=== PATIENT | female | born 1980 | race Two or more races ===

== ENCOUNTER 2016-04-06 09:23 | Inpatient (IN) | payer SELFPAY ==
[~2016-04-06] VITALS: Ht 154.9 cm; Wt 76.7 kg
[2016-04-06] MEDS ORDERED: IV RINGERS,LACTATED 1000ML 1,000 ML IV SCH (09:58)
[2016-04-06] MEDS ORDERED: 0.9 % SODIUM CHLORIDE 10 ML DISP.SYRIN. IV PRN ×2 (10:00→14:30)
[2016-04-06] MEDS ORDERED: OXYTOCIN 30 UNIT/500 ML PREMIX 500 ML IV PRN ×2 (10:00→14:30)
[2016-04-06] MEDS ORDERED: LIDOCAINE 1% PF 30 ML VIAL. INJ PRN (10:00)
[2016-04-06] MEDS ORDERED: TERBUTALINE 1 MG/ML VIAL. SQ PRN (10:00)
[2016-04-06] MEDS ORDERED: FENTANYL PF 100 MCG/2 ML VIAL. IV PRN (10:00)
[2016-04-06] MEDS ORDERED: BUTORPHANOL 2 MG VIAL. IV PRN ×2 (10:00→14:30)
[2016-04-06 10:24] VITALS: BP 124/67
[2016-04-06 11:24] LABS: HEMATOCRIT 39.4 % (36.0-47.0); HEMOGLOBIN 13.4 g/dL (12.0-15.5); RED BLOOD COUNT 4.51 x10^6/uL (3.50-5.40); RED CELL DISTRIBUTION WIDTH 13.4 % (11.5-14.5); WHITE BLOOD COUNT 10.9 x10^3/uL (4.0-11.0)
--- NOTE | 2016-04-06 13:38 | PDOC1 ---
OB - History Hx of Present Care: Good Care Ultrasounds: Normal mid trimester US Obstetrical Complications: None Medical Complications: None Past Family/Social History * Past Medical, Surgical, Family and Obstetric Histories reviewed from chart. Rubella: Immune RPR/VDRL: Negative GBS Status: Negative HBsAG: Negative OB - Chief Complaint & HPI Date of Admission: Date of Admission: Apr 06, 2016 at 09:23 Chief Complaint/History : 4 Para: 3 EGA: 36 Reason for admission: active labor Admission Nurse Assessment Rev: Yes Problems: OB - Admission Exam Physical Exam Vitals: VS - Last 72 Hours, by Label Date Time Temp Pulse Resp B/P Pulse Ox O2 Delivery O2 Flow Rate FiO2 04/06/16 11:50 22 Room Air 04/06/16 10:24 97.9 98 20 124/67 97.9 HEENT: Normal Heart: Regular Rate Lungs: Clear Abdomen: Gravid, Non tender, Soft Extremities: Edema Reflexes: Normal Cervical Dilatation: 5cm Effacement: 75% Station: -2 Membranes: Intact Heart Rate: Normal Accelerations: Accelerations Present Decelerations: No decelerations Contractions on Admission: < 5 Minutes Apart Intensity: Moderate Text A: 38 wks IUP Active labor P: Admit for labor management. DALJIT SUMMERS Jr, MD Apr 06, 2016 13:38
--- NOTE | 2016-04-06 14:25 | PDOC ---
VAGINAL DELIVERY DATE DATE: 04/06/16 TIME: 14:24 : 4 Para: 4 EGA: 38 VAGINAL DELIVERY: VTX VACCUM ASSISTED: No PLACENTA: Spontaneous 8/9 SEX: Male WEIGHT Weight [3455 gm ] Nuchal Cord: Yes, Times 2 Amniotic Fluid: Clear PAIN: Natural EPISIOTOMY: No EXTENSION: Yes (2nd degree midline laceration) REPAIRED WITH 2-0 vicryl EBL 300 ml COMPLICATIONS none CONDITION pt. stable Signs of Intrauterine Infectio: None Shoulder Dystocia: No Problems: DALJIT SUMMERS Jr, MD Apr 06, 2016 14:25
[2016-04-06] MEDS ORDERED: SIMETHICONE 80 MG TAB.CHEW PO PRN (14:30)
[2016-04-06] MEDS ORDERED: ZOLPIDEM 5 MG TABLET. PO PRN (14:30)
[2016-04-06] MEDS ORDERED: MAGNESIUM HYDROXIDE 2,400 MG/30 ML ORAL.SUSP. PO PRN (14:30)
[2016-04-06] MEDS ORDERED: BENZOCAINE 20% TOPICAL AEROSOL SPRAY 57GM CAN. TP PRN (14:30)
[2016-04-06] MEDS ORDERED: PHENYLEPH/MINERAL OIL/PETROLAT RECTAL OINTMENT 28GM TUBE. RC PRN (14:30)
[2016-04-06] MEDS ORDERED: MMR per PROTOCOL. MC PRN (14:30)
[2016-04-06] MEDS ORDERED: IBUPROFEN 800 MG TABLET. PO PRN (14:30)
[2016-04-06] MEDS ORDERED: HYDROCORTISONE 1% TOPICAL OINTMENT 30GM TUBE. TP PRN (14:30)
[2016-04-06] MEDS ORDERED: ACETAMINOPHEN 325 MG TABLET. PO PRN (14:30)
[2016-04-06] MEDS ORDERED: MAG HYDROX/AL HYDROX/SIMETH 30 ML ORAL.SUSP PO PRN (14:30)
[2016-04-06] MEDS ORDERED: DIPHENHYDRAMINE HCL 25 MG CAPSULE PO PRN (14:30)
[2016-04-06] MEDS: IBUPROFEN 800 MG TABLET. PO PRN (16:49)
[2016-04-06 17:00] VITALS: BP 115/70
[2016-04-06 18:09] VITALS: BP 103/76
[2016-04-06] MEDS: DOCUSATE SODIUM 100 MG CAPSULE PO PRN (18:16)
[2016-04-06] MEDS: OXYCODONE/APAP 5/325 TABLET. PO PRN ×2 (18:16→22:19)
[2016-04-06 23:02] VITALS: BP 96/58
[2016-04-07 05:39] LABS: BASO % 0 % (0-3); EOS % 0 % (0-3); HEMATOCRIT 35.4 % (36.0-47.0); HEMOGLOBIN 11.7 g/dL (12.0-15.5); LYMPH # 2.5 x10^3/uL (1.0-4.8); LYMPH % 23 % (24-48); MEAN CORPUSCULAR HEMOGLOBIN 30 pg (25-35); MEAN CORPUSCULAR HGB CONC 33 g/dL (31-37); MEAN CORPUSCULAR VOLUME 90 fL (79-100); MONO % 6 % (0-9); NEUT % 70 % (31-73); PLATELET COUNT 202 x10^3/uL (140-400); RED BLOOD COUNT 3.94 x10^6/uL (3.50-5.40); RED CELL DISTRIBUTION WIDTH 13.2 % (11.5-14.5); WHITE BLOOD COUNT 10.8 x10^3/uL (4.0-11.0)
[2016-04-07 06:08] VITALS: BP 100/70
[2016-04-07] MEDS ORDERED: FERROUS SULFATE 325 MG TABLET PO SCH (08:00)
[2016-04-07] MEDS: IBUPROFEN 800 MG TABLET. PO PRN ×2 (09:14→18:36)
[2016-04-07] MEDS: DOCUSATE SODIUM 100 MG CAPSULE PO PRN (09:14)
--- NOTE | 2016-04-07 12:30 | PDOC ---
OB Progress Note Date of Service 04/07/16 Time of Evaluation 1230 Notes Pt. feeling well. No complaints. Lab Laboratory Tests Test 04/06/16 09:50 04/07/16 04:00 White Blood Count 10.9x10^3/uL (4.0-11.0) 10.8x10^3/uL (4.0-11.0) Red Blood Count 4.51x10^6/uL (3.50-5.40) 3.94x10^6/uL (3.50-5.40) Hemoglobin 13.4g/dL (12.0-15.5) 11.7g/dL (12.0-15.5) Hematocrit 39.4% (36.0-47.0) 35.4% (36.0-47.0) Mean Corpuscular Volume 87fL (79-100) 90fL (79-100) Mean Corpuscular Hemoglobin 30pg (25-35) 30pg (25-35) Mean Corpuscular Hemoglobin Concent 34g/dL (31-37) 33g/dL (31-37) Red Cell Distribution Width 13.4% (11.5-14.5) 13.2% (11.5-14.5) Platelet Count 237x10^3/uL (140-400) 202x10^3/uL (140-400) Neutrophils (%) (Auto) 70% (31-73) Lymphocytes (%) (Auto) 23% (24-48) Monocytes (%) (Auto) 6% (0-9) Eosinophils (%) (Auto) 0% (0-3) Basophils (%) (Auto) 0% (0-3) Neutrophils # (Auto) 7.6x10^3uL (1.8-7.7) Lymphocytes # (Auto) 2.5x10^3/uL (1.0-4.8) Monocytes # (Auto) 0.7x10^3/uL (0.0-1.1) Eosinophils # (Auto) 0.0x10^3/uL (0.0-0.7) Basophils # (Auto) 0.0x10^3/uL (0.0-0.2) Laboratory Tests Test 04/07/16 04:00 White Blood Count 10.8x10^3/uL (4.0-11.0) Red Blood Count 3.94x10^6/uL (3.50-5.40) Hemoglobin 11.7g/dL (12.0-15.5) Hematocrit 35.4% (36.0-47.0) Mean Corpuscular Volume 90fL (79-100) Mean Corpuscular Hemoglobin 30pg (25-35) Mean Corpuscular Hemoglobin Concent 33g/dL (31-37) Red Cell Distribution Width 13.2% (11.5-14.5) Platelet Count 202x10^3/uL (140-400) Neutrophils (%) (Auto) 70% (31-73) Lymphocytes (%) (Auto) 23% (24-48) Monocytes (%) (Auto) 6% (0-9) Eosinophils (%) (Auto) 0% (0-3) Basophils (%) (Auto) 0% (0-3) Neutrophils # (Auto) 7.6x10^3uL (1.8-7.7) Lymphocytes # (Auto) 2.5x10^3/uL (1.0-4.8) Monocytes # (Auto) 0.7x10^3/uL (0.0-1.1) Eosinophils # (Auto) 0.0x10^3/uL (0.0-0.7) Basophils # (Auto) 0.0x10^3/uL (0.0-0.2) Medications Current Medications Sodium Chloride 3 ml 3 ml QSHIFT PRN IV AFTER MEDS AND BLOOD DRAWS; Start at 10:00 Lactated Ringer's (Iv Lactated Ringers) 1,000 ml @ 125 mls/hr Q8H IV Last administered on 04/06/16 11:14; Start 04/06/16 at 09:58 Butorphanol Tartrate (Stadol) 2 mg PRN Q1HR PRN IV Severe labor pain Last administered on 04/06/16 14:32; Start 04/06/16 at 10:00 Fentanyl Citrate (Fentanyl 2ml Vial) 100 mcg PRN Q30MIN PRN IV Severe pain Last administered on 04/06/16 11:50; Start 04/06/16 at 10:00 Terbutaline Sulfate (Brethine) 0.25 mg 1X PRN PRN SQ SEE COMMENTS; Start at 10:00; Stop 04/07/16 at 09:59; Status DC Lidocaine HCl 30 ml 30 ml 1X PRN PRN INJ SEE COMMENTS Last administered on 14:32; Start 04/06/16 at 10:00; Stop 04/08/16 at 09:59 Oxytocin/Sodium Chloride (Oxytocin Premix Infusion) 500 ml @ 0 mls/hr CONT PRN PRN IV Post delivery bleeding Last administered on 04/06/16 11:51; Start at 10:00 Ibuprofen (Motrin) 800 mg PRN Q6HRS PRN PO PAIN Last administered on 04/07/16 09:14; Start 04/06/16 at 10:00 Sodium Chloride 10 ml 10 ml QSHIFT PRN IV AFTER MEDS AND BLOOD DRAWS; Start 04/06/16 at 14:30 Oxytocin/Sodium Chloride (Oxytocin Premix Infusion) 500 ml @ 62.5 mls/hr CONT PRN IV SEE I/O RECORD; Start 04/06/16 at 14:30; Stop 04/06/16 at 22:29; Status DC Acetaminophen (Tylenol) 650 mg PRN Q6HRS PRN PO MILD PAIN / TEMP; Start at 14:30 Ibuprofen (Motrin) 800 mg PRN Q8HRS PRN PO INFLAMMATION/PAIN PREVENTION; Start 04/06/16 at 14:30 Docusate Sodium (Colace) 100 mg PRN BID PRN PO CONSTIPATION Last administered on 04/07/16 09:14; Start 04/06/16 at 14:30 Magnesium Hydroxide (Milk Of Magnesia) 2,400 mg PRN DAILY PRN PO CONSTIPATION; Start 04/06/16 at 14:30 Al Hydroxide/Mg Hydroxide (Mylanta Plus Xs) 30 ml PRN Q4HRS PRN PO HEARTBURN / GAS; Start 04/06/16 at 14:30 Simethicone (Gas-X) 80 mg PRN AFTMEALHC PRN PO GAS / BLOATING; Start 04/06/16 at 14:30 Diphenhydramine HCl (Benadryl) 25 mg PRN Q6HRS PRN PO ITCHING; Start 04/06/16 at 14:30 Benzocaine (Americaine) 1 spray PRN QID PRN TP TOPICAL PAIN Last administered on 04/06/16 16:49; Start 04/06/16 at 14:30 Phenyleph/Shark Oil/Min Oil/Petrol (Preparation H) 1 raudel PRN QID PRN RC RECTAL PAIN; Start 04/06/16 at 14:30 Hydrocortisone (Cortaid) 1 raudel PRN QID PRN TP PERINEAL PAIN; Start 04/06/16 at 14:30 Ferrous Sulfate (Feosol) 325 mg BIDWMEALS PO ; Start 04/07/16 at 08:00; Stop 04/07 at 08:00; Status DC Zolpidem Tartrate (Ambien) 5 mg PRN QHS PRN PO INSOMNIA, MAY REPEAT X1; Start 04/06/16 at 14:30 Info (Do NOT chart on this placeholder) 1 ea 1X PRN PRN MC SEE COMMENTS; Start 04/06/16 at 14:30 Info (Do NOT chart on this placeholder) 1 ea 1X PRN PRN MC SEE COMMENTS; Start 04/06/16 at 14:30 Oxycodone/ Acetaminophen (Percocet 5/325) 2 tab PRN Q4HRS PRN PO MODERATE PAIN , SEVERE PAIN Last administered on 04/06/16 22:19; Start 04/06/16 at 14:30 Butorphanol Tartrate (Stadol) 2 mg PRN Q4HRS PRN IV PAIN; Start 04/06/16 at 14: 30 Exam Abd: soft, non tender, fundus firm Assessment PPD#1 s/p Plan of Care: Continue current Tx, Mgmt DALJIT SUMMERS Jr, MD Apr 07, 2016 12:30
[2016-04-07 13:35] VITALS: BP 107/74
[2016-04-07 21:30] VITALS: BP 94/58
[2016-04-08] MEDS: OXYCODONE/APAP 5/325 TABLET. PO PRN (00:12)
[2016-04-08 05:45] VITALS: BP 88/50
[2016-04-08] MEDS: IBUPROFEN 800 MG TABLET. PO PRN ×2 (06:28→14:50)
--- NOTE | 2016-04-08 12:58 | PDOC ---
OB Progress Note Date of Service 04/08/16 Time of Evaluation 1255 Notes PT. feeling well. No complaints. Lab Laboratory Tests Test 04/07/16 04:00 White Blood Count 10.8x10^3/uL (4.0-11.0) Red Blood Count 3.94x10^6/uL (3.50-5.40) Hemoglobin 11.7g/dL (12.0-15.5) Hematocrit 35.4% (36.0-47.0) Mean Corpuscular Volume 90fL (79-100) Mean Corpuscular Hemoglobin 30pg (25-35) Mean Corpuscular Hemoglobin Concent 33g/dL (31-37) Red Cell Distribution Width 13.2% (11.5-14.5) Platelet Count 202x10^3/uL (140-400) Neutrophils (%) (Auto) 70% (31-73) Lymphocytes (%) (Auto) 23% (24-48) Monocytes (%) (Auto) 6% (0-9) Eosinophils (%) (Auto) 0% (0-3) Basophils (%) (Auto) 0% (0-3) Neutrophils # (Auto) 7.6x10^3uL (1.8-7.7) Lymphocytes # (Auto) 2.5x10^3/uL (1.0-4.8) Monocytes # (Auto) 0.7x10^3/uL (0.0-1.1) Eosinophils # (Auto) 0.0x10^3/uL (0.0-0.7) Basophils # (Auto) 0.0x10^3/uL (0.0-0.2) Medications Current Medications Sodium Chloride 3 ml 3 ml QSHIFT PRN IV AFTER MEDS AND BLOOD DRAWS; Start at 10:00 Lactated Ringer's (Iv Lactated Ringers) 1,000 ml @ 125 mls/hr Q8H IV Last administered on 04/06/16 11:14; Start 04/06/16 at 09:58 Butorphanol Tartrate (Stadol) 2 mg PRN Q1HR PRN IV Severe labor pain Last administered on 04/06/16 14:32; Start 04/06/16 at 10:00 Fentanyl Citrate (Fentanyl 2ml Vial) 100 mcg PRN Q30MIN PRN IV Severe pain Last administered on 04/06/16 11:50; Start 04/06/16 at 10:00 Terbutaline Sulfate (Brethine) 0.25 mg 1X PRN PRN SQ SEE COMMENTS; Start at 10:00; Stop 04/07/16 at 09:59; Status DC Lidocaine HCl 30 ml 30 ml 1X PRN PRN INJ SEE COMMENTS Last administered on 14:32; Start 04/06/16 at 10:00; Stop 04/08/16 at 09:59; Status DC Oxytocin/Sodium Chloride (Oxytocin Premix Infusion) 500 ml @ 0 mls/hr CONT PRN PRN IV Post delivery bleeding Last administered on 04/06/16 11:51; Start at 10:00 Ibuprofen (Motrin) 800 mg PRN Q6HRS PRN PO PAIN Last administered on 04/08/16 06:28; Start 04/06/16 at 10:00 Sodium Chloride 10 ml 10 ml QSHIFT PRN IV AFTER MEDS AND BLOOD DRAWS; Start 04/06/16 at 14:30 Oxytocin/Sodium Chloride (Oxytocin Premix Infusion) 500 ml @ 62.5 mls/hr CONT PRN IV SEE I/O RECORD; Start 04/06/16 at 14:30; Stop 04/06/16 at 22:29; Status DC Acetaminophen (Tylenol) 650 mg PRN Q6HRS PRN PO MILD PAIN / TEMP; Start at 14:30 Ibuprofen (Motrin) 800 mg PRN Q8HRS PRN PO INFLAMMATION/PAIN PREVENTION; Start 04/06/16 at 14:30 Docusate Sodium (Colace) 100 mg PRN BID PRN PO CONSTIPATION Last administered on 04/07/16 09:14; Start 04/06/16 at 14:30 Magnesium Hydroxide (Milk Of Magnesia) 2,400 mg PRN DAILY PRN PO CONSTIPATION; Start 04/06/16 at 14:30 Al Hydroxide/Mg Hydroxide (Mylanta Plus Xs) 30 ml PRN Q4HRS PRN PO HEARTBURN / GAS; Start 04/06/16 at 14:30 Simethicone (Gas-X) 80 mg PRN AFTMEALHC PRN PO GAS / BLOATING; Start 04/06/16 at 14:30 Diphenhydramine HCl (Benadryl) 25 mg PRN Q6HRS PRN PO ITCHING; Start 04/06/16 at 14:30 Benzocaine (Americaine) 1 spray PRN QID PRN TP TOPICAL PAIN Last administered on 04/06/16 16:49; Start 04/06/16 at 14:30 Phenyleph/Shark Oil/Min Oil/Petrol (Preparation H) 1 raudel PRN QID PRN RC RECTAL PAIN; Start 04/06/16 at 14:30 Hydrocortisone (Cortaid) 1 rauedl PRN QID PRN TP PERINEAL PAIN; Start 04/06/16 at 14:30 Ferrous Sulfate (Feosol) 325 mg BIDWMEALS PO ; Start 04/07/16 at 08:00; Stop 04/07 at 08:00; Status DC Zolpidem Tartrate (Ambien) 5 mg PRN QHS PRN PO INSOMNIA, MAY REPEAT X1; Start 04/06/16 at 14:30 Info (Do NOT chart on this placeholder) 1 ea 1X PRN PRN MC SEE COMMENTS; Start 04/06/16 at 14:30 Info (Do NOT chart on this placeholder) 1 ea 1X PRN PRN MC SEE COMMENTS; Start 04/06/16 at 14:30 Oxycodone/ Acetaminophen (Percocet 5/325) 2 tab PRN Q4HRS PRN PO MODERATE PAIN , SEVERE PAIN Last administered on 04/08/16 00:12; Start 04/06/16 at 14:30 Butorphanol Tartrate (Stadol) 2 mg PRN Q4HRS PRN IV PAIN; Start 04/06/16 at 14: 30 Exam Abd: soft, non tender, fundus firm Assessment PPD#2 s/p Plan of Care: See new orders (D/ c home.) DLAJIT SUMMERS Jr, MD Apr 08, 2016 12:58
[2016-04-08] MEDS ORDERED: IBUP-1060 PO (12:59)
--- NOTE | 2016-04-08 12:59 | DISCH ---
DISCHARGE INSTRUCTIONS Condition on Discharge Condition on Discharge: Stable Activity After Discharge Activity Instructions for Disc: Activity as tolerated Lifting Instructions after Dis: No heavy lifting Driving Instructions after Dis: Do not drive today Diet after Discharge Diet after Discharge: Regular Contacting the DRJeana after DC Call your doctor for: Concerns you may have Follow-Up Follow up with: Yun in 6 weeks. DALJIT SUMMERS Jr, MD Apr 08, 2016 12:59
[2016-04-08] MEDS: DOCUSATE SODIUM 100 MG CAPSULE PO PRN (14:50)
== END 2016-04-08 18:00 | disposition home or self-care (01) | DRG 775 ==
LOC: 3 SO LND 09:23 → OBSVTOIN 09:23 → 3 SO LND 17:04
PROVIDERS: ADMIT Obstetrics & Gynecology; ATTEND Obstetrics & Gynecology
PROC: 10E0XZZ Delivery of Products of Conception, External Approach (ICD-10-PCS; principal; 2016-04-06)
PROC: 0KQM0ZZ Repair Perineum Muscle, Open Approach (ICD-10-PCS; 2016-04-06)
DX: O69.81X0 Labor and delivery complicated by cord around neck, without compression, not applicable or unspecified (principal); O70.1 Second degree perineal laceration during delivery; Z37.0 Single live birth; Z3A.40 40 weeks gestation of pregnancy
CPT/HCPCS: 36415; 85027; 86593; 86850; 86900; 86901; J2590; J3010; J7120

== ENCOUNTER 2016-12-06 11:07 | Emergency (ER) | payer MEDICAID ==
[~2016-12-06] VITALS: Ht 162.6 cm; Wt 65.8 kg
[~2016-12-06 11:07] MED LIST: IBUP-1060 PO
--- NOTE | 2016-12-06 12:03 | RAD ---
Pelvis with left hip, 3 views, 12/06/2016: History: Fall, pain No fracture or dislocation is identified. The soft tissues are unremarkable. IMPRESSION: No acute abnormality is detected. Left foot, 3 views, 12/06/2016: History: Fall, pain No fracture or dislocation is identified. There is mild subcutaneous edema. IMPRESSION: No acute bony abnormality is detected.
--- NOTE | 2016-12-06 12:16 | PHYS DOC ---
Past Medical History Past Medical History: No Pertinent History Past Surgical History: Cholecystectomy Alcohol Use: None Drug Use: None Adult General Chief Complaint Chief Complaint: MECHANICAL FALL HPI HPI Patient is a 36 year old female presents to the emergency department stating that she was walking with her child when she slipped and fell on the water. She states she is having left hip and left knee pain and discomfort. She is able to ambulate with a good steady gait. She denies any back pain or discomfort. She denies hitting her head or any loss of consciousness. Review of Systems Review of Systems Constitutional: Denies fever or chills [] Eyes: Denies change in visual acuity, redness, or eye pain [] HENT: Denies nasal congestion or sore throat [] Respiratory: Denies cough or shortness of breath [] Cardiovascular: No additional information not addressed in HPI [] GI: Denies abdominal pain, nausea, vomiting, bloody stools or diarrhea [] : Denies dysuria or hematuria [] Musculoskeletal: Denies back pain. Complaint of left hip and left knee pain Integument: Denies rash or skin lesions [] Neurologic: Denies headache, focal weakness or sensory changes [] Endocrine: Denies polyuria or polydipsia [] Allergies Allergies Allergies Coded Allergies Type Severity Reaction Last Updated Verified No Known Drug Allergies 04/06/16 No Physical Exam Physical Exam Constitutional: Well developed, well nourished, no acute distress, non-toxic appearance. [] HENT: Normocephalic, atraumatic, bilateral external ears normal, oropharynx moist, no oral exudates, nose normal. [] Eyes: PERRLA, EOMI, conjunctiva normal, no discharge. [] Neck: Normal range of motion, no tenderness, supple, no stridor. [] Cardiovascular:Heart rate regular rhythm, no murmur [] Lungs & Thorax: Bilateral breath sounds clear to auscultation [] Skin: Warm, dry, no erythema, no rash. [] Back: No cervical spine, thoracic spine, lumbar spine tenderness, no crepitus, no deformities and no step-offs noted. Extremities: Left hip, left knee tenderness, no cyanosis, no clubbing, ROM intact, no edema. Left lower leg peripheral pulses 2+ cap refill brisk less than 2 seconds. Patient with a good steady K noted. Neurologic: Alert and oriented X 3, normal motor function, normal sensory function, no focal deficits noted. [] Psychologic: Affect normal, judgement normal, mood normal. [] Current Patient Data Vital Signs Vital Signs Date Time Temp Pulse Resp B/P (MAP) Pulse Ox O2 Delivery O2 Flow Rate FiO2 12/06/16 11:40 98.8 80 20 100 Room Air 98.8 EKG EKG [] Radiology/Procedures Radiology/Procedures [][facility] [address] [place] [address] IMAGING REPORT Signed PATIENT: RANDALL MARIN ACCOUNT: [id number] : 1980 LOCATION: ER AGE: 36 SEX: F EXAM [id number] STATUS: REG ER ORD. PHYSICIAN: ANYI BRANTLEY APRN REASON: slipped and fell with child PROCEDURE: FOOT LEFT 3V; HIP LEFT 2V WITH PELVIS Pelvis with left hip, 3 views, 12/06/2016: History: Fall, pain No fracture or dislocation is identified. The soft tissues are unremarkable. IMPRESSION: No acute abnormality is detected. Left foot, 3 views, 12/06/2016: History: Fall, pain No fracture or dislocation is identified. There is mild subcutaneous edema. IMPRESSION: No acute bony abnormality is detected. DICTATED and SIGNED BY: NESTOR HANSEN MD DATE: 12/06/16 1158 CC: ANYI BRANTLEY APRN; NON,STAFF; DALJIT SUMMERS Jr, MD ~ Course & Med Decision Making Course & Med Decision Making Pertinent Labs and Imaging studies reviewed. (See chart for details) X-rays were negative for any bony abnormalities. Patient was encouraged to use Tylenol or ibuprofen for pain and discomfort. Ice packs on 20 minutes off 20 minutes several times a day. Patient will be discharged home in stable condition with signs and symptoms to return back to emergency department. Patient agrees with discharge instructions treatment regimens and follow-up recommendations. All questions and concerns were answered at patient's bedside. [] Dragon Disclaimer Dragon Disclaimer This electronic medical record was generated, in whole or in part, using a voice recognition dictation system. Departure Departure Impression: Primary Impression: Fall Additional Impressions: Hip pain, left Knee pain, left Disposition: 01 HOME, SELF-CARE Condition: STABLE Referrals: DALJIT SUMMERS Jr, MD (PCP) Patient Instructions: Fall Prevention and Home Safety, [id number], Hip Pain, Knee Pain, [id number] Additional Instructions: Activity as tolerated. Tylenol or ibuprofen for pain and discomfort. Ice packs on 20 minutes off 20 minutes several times a day. Follow-up to primary care physician in the next week if he continued have pain and discomfort. Return back to emergency prior signs symptoms of become worse. Problem Qualifiers Primary Impression: Fall Encounter type: initial encounter Qualified Codes: W19.XXXA - Unspecified fall, initial encounter Additional Impressions: Knee pain, left Chronicity: acute Qualified Codes: M25.562 - Pain in left knee ANYI BRANTLEY TIMBER CRUISER Dec 06, 2016 12:16
== END 2016-12-06 13:26 | disposition home or self-care (01) ==
LOC: ER 11:07
DX: M25.552 Pain in left hip (principal); M25.562 Pain in left knee; W01.0XXA Fall on same level from slipping, tripping and stumbling without subsequent striking against object, initial encounter; Y93.01 Activity, walking, marching and hiking; Y99.8 Other external cause status; Y92.89 Other specified places as the place of occurrence of the external cause
CPT/HCPCS: 73502; 73630; 99284

== ENCOUNTER 2020-07-21 21:35 | Emergency (ER) | payer SELFPAY ==
[~2020-07-21] VITALS: Ht 160 cm; Wt 61.3 kg
[2020-07-21] MEDS ORDERED: PEG4000S8 PO (22:54)
--- NOTE | 2020-07-21 22:54 | PHYS DOC ---
Past Medical History Past Medical History: Depression Past Surgical History: Cholecystectomy Smoking Status: Never Smoker Alcohol Use: None Drug Use: None General Adult EDM: Chief Complaint: CONTISPATION HPI: HPI: Patient is a 40 year old female who no prescription medications presents with a chief complaint of constipation. Patient states that she has not had a bowel movement x3 days. She states she has suprapubic discomfort that radiates in her lower abdomen up to the periumbilical region. Patient describes the pain as a burning-like sensation. Patient tells me she has a past medical history of constipation and similar symptoms previously. Patient did not use any home medications to treat her constipation. Patient had had some nausea but has not vomited she denies any urinary urgency frequency and denies any vaginal discharge. Patient does have an abdominal surgical history but she does not know what organ was removed. Review of Systems: Review of Systems: Constitutional: Denies fever or chills. [] Eyes: Denies change in visual acuity. [] HENT: Denies nasal congestion or sore throat. [] Respiratory: Denies cough or shortness of breath. [] Cardiovascular: Denies chest pain or edema. [] GI: Positive abdominal pain, Positive nausea, no vomiting, bloody stools or diarrhea. [Positive constipation] : Denies dysuria. [] Musculoskeletal: Denies back pain or joint pain. [] Integument: Denies rash. [] Neurologic: Denies headache, focal weakness or sensory changes. [] Endocrine: Denies polyuria or polydipsia. [] Lymphatic: Denies swollen glands. [] Psychiatric: Denies depression or anxiety. [] Heart Score: C/O Chest Pain: N/A Risk Factors: Risk Factors: DM, Current or recent (<one month) smoker, HTN, HLP, family history of CAD, obesity. Risk Scores: Score 0 - 3: 2.5% MACE over next 6 weeks - Discharge Home Score 4 - 6: 20.3% MACE over next 6 weeks - Admit for Clinical Observation Score 7 - 10: 72.7% MACE over next 6 weeks - Early Invasive Strategies Current Medications: Current Medications Medications (Trade) Dose Ordered Sig/Agata Start Time Stop Time Status Last Admin Dose Admin Lorazepam (Ativan Inj) 1 mg 1X ONCE 07/21/20 23:00 07/21/20 22:21 DC Allergies: Allergies: Allergies Coded Allergies Type Severity Reaction Last Updated Verified No Known Drug Allergies 04/06/16 No Physical Exam: PE: General: alert, no acute distress. Skin: warm, dry and intact. Head:: Normocephalic, atraumatic. Neck: Trachea midline. Eyes: EOMI, Normal conjunctiva, No drainage CARDIOVASCULAR: Regular rate and rhythm RESPIRATORY: No respiratory distress Back: Full range of motion. MUSCULOSKELETAL: Full range of motion of bilateral upper and lower extremities. GASTROINTESTINAL: Abdomen soft without rebound or guarding. NEUROLOGICAL: Alert and noted to person, place and time. No neurological deficits observed Psychiatric: Cooperative. Normal judgment Current Patient Data: Labs: Laboratory Tests Test 07/21/20 21:53 POC Urine HCG, Qualitative Hcg negative (Negative) EKG: EKG: [] Radiology/Procedures: Radiology/Procedures: [] Course & Med Decision Making: Course & Med Decision Making Pertinent Labs and Imaging studies reviewed. (See chart for details) [] Based upon history of present illness and physical exam no emergent lab or radiologic imaging was performed. Patient's abdomen was soft without rebound or guarding. Patient appeared in no acute distress. Patient has previous history of constipation with similar symptoms. Patient was discharged home with GoLYTELY. Darrel Disclaimer: Headroom Disclaimer: This electronic medical record was generated, in whole or in part, using a voice recognition dictation system. Departure Departure Impression: Primary Impression: Constipation Disposition: 01 HOME / SELF CARE / HOMELESS Condition: STABLE Referrals: UNKNOWN PCP NAME (PCP) Patient Instructions: Constipation, Adult Scripts Peg 3350/Na Sulf,Bicarb,Cl/Kcl (GOLYTELY SOLUTION) 4,000 Ml Soln.recon 4000 ML PO 1X for 1 Day, #1 MISC drink 8 oz q 10 minutes until stool Prov: BRI PADILLA I DO 07/21/20 BRI PADILLA DO Jul 21, 2020 22:54
[2020-07-21 23:15] VITALS: BP 106/62
== END 2020-07-21 23:25 | disposition home or self-care (01) ==
LOC: ER 21:35
DX: K59.00 Constipation, unspecified (principal); R20.8 Other disturbances of skin sensation; R20.2 Paresthesia of skin; F32.9 Major depressive disorder, single episode, unspecified; Z90.49 Acquired absence of other specified parts of digestive tract
CPT/HCPCS: 81025; 99283